=== PATIENT | female | born 1960 | race Caucasian/White ===

== ENCOUNTER 2017-05-05 19:36 | Emergency (ER) | payer OTHER ==
[~2017-05-05] VITALS: Ht 157.5 cm; Wt 74.8 kg
--- NOTE | 2017-05-05 20:30 | RAD ---
CT HEAD INDICATION: Injury from fall, hit back of head, headache. No priors. COMPARISON: None Available. TECHNIQUE: 5 mm contiguous axial images were obtained from the skull base to the vertex Exposure: One or more of the following individualized dose reduction techniques were utilized for this examination: 1. Automated exposure control 2. Adjustment of the mA and/or kV according to patient size 3. Use of iterative reconstruction technique FINDINGS: No abnormal attenuation within the brain parenchyma. No evidence of acute intracranial hemorrhage. No extra-axial fluid collections. No mass effect or midline shift. Ventricular size is appropriate. Basal cisterns are patent. No fractures identified.Stallings-white differentiation is preserved.Globes and orbits are within normal limits. Paranasal sinuses and mastoid air cells are clear. IMPRESSION: No acute intracranial findings. Electronically signed by: Rickie Umaña MD (05/05/2017 8:26 PM) [facility]
--- NOTE | 2017-05-05 20:36 | PHYS DOC ---
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 Patient slipped and fell striking her scalp on the ground. Denies loss of consciousness. Mild headache since. No neck pain or injury. No other complaints. Normal speech vision gait and coordination. Patient does not take blood thinners Everman 70 bone or bleeding problems Review of Systems Review of Systems Constitutional: Denies fever or chills [] Eyes: Denies change in visual acuity, redness, or eye pain [] HENT: Denies nasal congestion or sore throat [] Respiratory: Denies cough or shortness of breath [] Cardiovascular: No additional information not addressed in HPI [] GI: Denies abdominal pain, nausea, vomiting, bloody stools or diarrhea [] : Denies dysuria or hematuria [] Musculoskeletal: Denies back pain or joint pain [] Integument: Denies rash or skin lesions [] Neurologic: Denies headache, focal weakness or sensory changes [] Endocrine: Denies polyuria or polydipsia [] All other systems were reviewed and found to be within normal limits, except as documented in this note. Allergies Allergies Allergies Coded Allergies Type Severity Reaction Last Updated Verified No Known Drug Allergies 05/05/17 No Physical Exam Physical Exam Well appearing patient no acute distress mild scalp tenderness no bony tenderness crepitus or step-off. Nontender C-spine with normal painless range of motion. Normal TMs bilaterally with no hemotympanum. No Sebastian sign. Remainder of exam is completely benign with a nonfocal neurologic exam Constitutional: Well developed, well nourished, no acute distress, non-toxic appearance. [] HENT: Normocephalic, atraumatic, bilateral external ears normal, oropharynx moist, no oral exudates, nose normal. [] Eyes: PERRLA, EOMI, conjunctiva normal, no discharge. [] Neck: Normal range of motion, no tenderness, supple, no stridor. [] Cardiovascular:Heart rate regular rhythm, no murmur [] Lungs & Thorax: Bilateral breath sounds clear to auscultation [] Abdomen: Bowel sounds normal, soft, no tenderness, no masses, no pulsatile masses. [] Skin: Warm, dry, no erythema, no rash. [] Back: No tenderness, no CVA tenderness. [] Extremities: No tenderness, no cyanosis, no clubbing, ROM intact, no edema. [] Neurologic: Alert and oriented X 3, normal motor function, normal sensory function, no focal deficits noted. [] Psychologic: Affect normal, judgement normal, mood normal. [] Current Patient Data Vital Signs Vital Signs Date Time Temp Pulse Resp B/P (MAP) Pulse Ox O2 Delivery O2 Flow Rate FiO2 05/05/17 20:29 60 16 138/102 (114) 97 Room Air 05/05/17 19:40 97.6 EKG EKG [] Radiology/Procedures Radiology/Procedures [] Course & Med Decision Making Course & Med Decision Making Pertinent Labs and Imaging studies reviewed. (See chart for details) Well-appearing patient no acute distress. Mild soft tissue tenderness and swelling of the scalp. No bony crepitus. CT of the head unremarkable. No click limits of C-spine injury. Nonfocal neurologic exam. She is well-appearing and asymptomatic on reevaluation prior to discharge. No further workup or treatment indicated at this time. Patient agrees with outpatient follow-up and strict return precautions given [] Dragon Disclaimer Dragon Disclaimer This electronic medical record was generated, in whole or in part, using a voice recognition dictation system. Departure Departure: Impression: Primary Impression: Closed head injury Additional Impression: Scalp hematoma Disposition: 01 HOME, SELF-CARE Condition: GOOD Referrals: ELENA KEVIN MD (PCP) Patient Instructions: Head Injury, Adult, Scalp Hematoma Additional Instructions: You have suffered a minor head injury from your fall this evening. You also have a small scalp hematoma. Rest apply ice to the swollen area overnight. Take ibuprofen every 6 hours and Tylenol every 4 hours as needed for headache or soreness. Follow up with your doctor tomorrow and return immediately for new severe worsening symptoms. 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 Problem Qualifiers HOPE MATTHEW MD May 05, 2017 20:36
[2017-05-05 20:40] VITALS: BP 156/98
== END 2017-05-05 20:43 | disposition home or self-care (01) ==
LOC: ER 19:36 → EDBD 19:36 → ER 20:43
DX: S00.03XA Contusion of scalp, initial encounter (principal); I10 Essential (primary) hypertension; W01.198A Fall on same level from slipping, tripping and stumbling with subsequent striking against other object, initial encounter; Y93.89 Activity, other specified; Y99.8 Other external cause status; Y92.89 Other specified places as the place of occurrence of the external cause
CPT/HCPCS: 70450; 99284-25

== ENCOUNTER 2019-09-17 00:43 | Emergency (ER) | payer OTHER ==
[~2019-09-17] VITALS: Ht 157.5 cm; Wt 78.1 kg
[2019-09-17 00:48] VITALS: BP 134/94
[2019-09-17] MEDS ORDERED: AMOX1TAB61 PO (00:51)
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
[2019-09-17] MEDS ORDERED: NEOMY/BACITR/POLYMYXIN OINT PACKET. TP ONE (01:00)
[2019-09-17] MEDS ORDERED: DIPH,PERTUSS(ACELL),TET VAC/PF 0.5 ML SYRINGE. VAX IM ONE ×2 (01:00)
[2019-09-17] MEDS ORDERED: AMOXICILLIN/K CLAV 875/125MG TABLET. PO ONE (01:00)
== END 2019-09-17 01:12 | disposition home or self-care (01) ==
LOC: ER 00:43
DX: S61.250A Open bite of right index finger without damage to nail, initial encounter (principal); I10 Essential (primary) hypertension; Z90.49 Acquired absence of other specified parts of digestive tract; Z98.890 Other specified postprocedural states; W50.3XXA Accidental bite by another person, initial encounter; Y93.89 Activity, other specified; Y92.89 Other specified places as the place of occurrence of the external cause; Y99.8 Other external cause status
CPT/HCPCS: 90471; 90715; 99283

== ENCOUNTER → 2019-10-07 | Outpatient (CLI) | payer OTHER ==
[2019-09-17 00:48] VITALS: BP 134/94
[~2019-10-07] MED LIST: AMOX1TAB61 PO
== END | disposition home or self-care (01) ==
LOC: LAB 07:18
PROVIDERS: ATTEND Internal Medicine Cardiovascular Disease
DX: Z20.828 Contact with and (suspected) exposure to other viral communicable diseases (principal)
CPT/HCPCS: C9803; U0003; 36415

== ENCOUNTER → 2020-02-24 | Outpatient (CLI) | payer OTHER | LOC: LAB 02-21 00:57 | PROVIDERS: ATTEND Internal Medicine Cardiovascular Disease | DX: Z20.828 Contact with and (suspected) exposure to other viral communicable diseases (principal) | CPT/HCPCS: U0003 ==

== ENCOUNTER → 2020-03-28 | Outpatient (CLI) | payer OTHER | LOC: LAB 08:35 | PROVIDERS: ATTEND Internal Medicine Cardiovascular Disease | DX: U07.1 COVID-19 (principal) | CPT/HCPCS: U0003 ==

== ENCOUNTER 2020-05-05 19:49 | Emergency (ER) | payer OTHER ==
[~2020-05-05] VITALS: Ht 157.5 cm; Wt 75.5 kg
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
[2020-05-05 19:57] VITALS: BP 134/106
[2020-05-05] MEDS ORDERED: BACITRACIN ZINC TOPICAL OINT PACKET. TP ONE (20:00)
--- NOTE | 2020-05-05 21:11 | RAD ---
Exam: CT head and cervical spine without contrast INDICATION: Fall, hit head TECHNIQUE: Sequential axial images through the head and cervical spine were obtained without the admi nistration of IV contrast. Comparisons: None FINDINGS: Head: No focal parenchymal lesion or hemorrhage is identified. There is no midline shift or sulcal effaceme nt. No acute vascular territory infarction is identified. Stallings-white distinction is preserved. The ventricular system is within normal limits without compression hydrocephalus. The basal cisterns are well maintained. The visualized portions of the paranasal sinuses and mastoid air cells are well-pneumatized. No acute fractures. Cervical spine: Straightening of cervical spine which may be positional. Vertebral body heights are well-maintained. Fracture to the cervical spine is identified. Multilevel spondylotic change in cervical spine with degenerative disc disease greatest at C4-C5, C5- C6. Visualized paraspinal soft tissues are unremarkable. IMPRESSION: 1. No acute intracranial abnormality. 2. Negative CT C-spine for acute traumatic injury. Exposure: One or more of the following in the visualized dose reduction techniques were utilized for this examination: 1. Automated exposure control 2. Adjustment of the MA and/or KV according to patient size Use of iterative of reconstructive technique Electronically signed by: Micheal Faulkner MD (05/05/2020 9:09 PM) [facility]
== END 2020-05-05 21:26 | disposition home or self-care (01) ==
LOC: ER 19:49
DX: S00.83XA Contusion of other part of head, initial encounter (principal); I10 Essential (primary) hypertension; Z90.49 Acquired absence of other specified parts of digestive tract; Z98.890 Other specified postprocedural states; W18.39XA Other fall on same level, initial encounter; Y93.89 Activity, other specified; Y92.89 Other specified places as the place of occurrence of the external cause; Y99.8 Other external cause status
CPT/HCPCS: 70450; 72125; 99285

== ENCOUNTER → 2020-06-15 | Outpatient (CLI) | payer OTHER ==
--- NOTE | 2020-06-15 14:21 | RAD ---
MR#: [id number] Date of Study: 06/15/2020 Ordering Physician: HEMANTH GOULD, Referring Physician: LAURA APODACA Tech: APPROVED REPORT Test Type: Exercise Stress Nurse/Tech: SHAVONNE Pleitez Test Indications: Family History of CAD Cardiac History: occasional tachycardia Medications: see EHR Medical History: see EHR Resting ECG: SR Resting Heart Rate: 121 bpm Resting Blood Pressure: 168/85mmHg Pretest Chest Pain: None Nurse/Tech Notes Consent: The procedure was explained to the patient in lay terms. Informed consent was witnessed. Harley charles was entered into b-datum. History and Stress Test performed by SHAVONNE Pleitez POST EXERCISE Reason for Termination: Fatigue Target HR: 136 Max HR: 154 bpm 113% of Maximum Predicted HR: 136 bpm Exercise duration: 7:25 min:sec, Stage Exercise capacity: 10METs Max Blood Pressure: 168/93mmHg Blood Pressure response to exercise: Normal blood pressure response during stress. Chest Pain: No. Arrhythmia: No. ST Change: No. INTERPRETATION Stress EKG Conclusion: Baseline EKG showed sinus rhythm. No ischemic changes at peak stress. No arr hythmias. Conclusion 1. Treadmill exercise stress electrocardiogram did not show any diagnostic evidence of ischemia. 2. Patient had good activity tolerance. Low risk study. Signed by : Celestine Mendoza, Electronically Approved : 06/15/2020 14:20:53
== END ==
LOC: NM 07:20
PROVIDERS: ATTEND Family Medicine
DX: I10 Essential (primary) hypertension (principal)
CPT/HCPCS: 93017

== ENCOUNTER → 2020-10-14 | Outpatient (CLI) | payer OTHER | LOC: LAB 10:28 | PROVIDERS: ATTEND Internal Medicine Cardiovascular Disease | DX: Z20.822 Contact with and (suspected) exposure to COVID-19 (principal) | CPT/HCPCS: U0003; U0005 ==

== ENCOUNTER 2020-11-03 19:32 | Emergency (ER) | payer OTHER ==
[~2020-11-03] VITALS: Ht 157.5 cm; Wt 81.0 kg
[~2020-11-03 19:32] MED LIST changes: -HYDR-2155 PO
[2020-11-03 19:41] VITALS: BP 183/99
--- NOTE | 2020-11-03 20:22 | RAD ---
RiGHT WRIST, 3 VIEWS Indication: Reason: pain after fall / Spl. Instructions: / History: Findings: There is no acute fracture or dislocation. No bony erosion is identified. The joint spaces are maintained. The mineralization is normal. There is no soft tissue swelling or radiopaque foreign body. IMPRESSION: No acute fracture. Electronically signed by: Mohan Little MD (11/03/2020 8:20 PM) [facility]
[2020-11-03] MEDS ORDERED: HYDR-2155 PO (20:38)
--- NOTE | 2020-11-03 20:43 | PHYS DOC ---
Past History Past Medical History: Hypertension (HOPE KNOX APRN) Past Surgical History: No Surgical History Additional Past Surgical Histo: carpal tunnel (HOPE KNOX APRN) Alcohol Use: None Drug Use: None (HOPE KNOX APRN) Adult General Chief Complaint Chief Complaint: WRIST PAIN HPI HPI Patient is a 60-year-old female who presents to the emergency department with chief complaint of slipping and falling left catching her fall with her right hand extended, patient reports pain to her right wrist after fall, reports a 5 out of 10 at onset which remains a 5 out of 10 pain on arrival to the ER today. Patient denies hitting her head or having a syncopal episode, denies taking any pain medications or using any nonpharmacological pain therapies prior to arrival to the ER today. Patient denies any other physical complaints or physical concerns. (HOPE KNOX APRN) Review of Systems Review of Systems 14 body systems of review of systems have been reviewed. See HPI for pertinent positives and negative responses, otherwise all other systems are negative, nonpertinent or noncontributory. Constitutional: Negative except as outlined in HPI above. Skin: Negative except as outlined in HPI above. Eyes: Negative except as outlined in HPI above. HENT: Negative except as outlined in HPI above. Respiratory: Negative except as outlined in HPI above. Cardiovascular: Negative except as outlined in HPI above. GI: Negative except as outlined in HPI above. : Negative except as outlined in HPI above. Musculoskeletal: Negative except as outlined in HPI above. Integument: Negative except as outlined in HPI above. Neurologic: Negative except as outlined in HPI above. Endocrine: Negative except as outlined in HPI above. Lymphatic: Negative except as outlined in HPI above. Psychiatric: Negative except as outlined in HPI above. (HOPE KNOX APRN) Allergies Allergies Allergies Coded Allergies Type Severity Reaction Last Updated Verified No Known Drug Allergies 05/05/17 No (HOPE KNOX APRN) Physical Exam Physical Exam Constitutional: Well developed, well nourished, no acute distress, non-toxic appearance. 60-year-old female in no apparent distress. HENT: Normocephalic, atraumatic. Eyes: Conjunctiva normal, no discharge. Neck: Normal range of motion, no stridor. Cardiovascular: No cyanosis appreciated, distal cap refill less than 2 seconds. Lungs & Thorax: Patient is in no respiratory distress, no audible adventitious lung sounds appreciated. Abdomen: Nontender, no abnormalities noted. Skin: Warm, dry, no erythema, no rash. Back: No tenderness, no deformities. Extremities: No tenderness, no cyanosis, no clubbing, ROM intact, no edema. Except for right wrist, no deformity appreciated, no erythema or edema or swelling appreciated, no crepitus appreciated, 2+ radial and brachial pulse of the right upper extremity, distal cap refills less than 2 seconds, no compartment syndrome signs appreciated, limited passive range of motion related to pain. Neurologic: Alert and oriented X 3, normal motor function, normal sensory function, no focal deficits noted. Psychologic: Affect normal, judgement normal, mood normal. (HOPE KNOX APRN) Current Patient Data Vital Signs Vital Signs Date Time Temp Pulse Resp B/P (MAP) Pulse Ox O2 Delivery O2 Flow Rate FiO2 11/03/20 19:41 98.1 88 16 183/99 95 Room Air (HOPE KNOX APRN) EKG EKG [] (HOPE KNOX APRN) Radiology/Procedures Radiology/Procedures [] (HOPE KNOX APRN) Heart Score C/O Chest Pain: No Risk Factors: Risk Factors: DM, Current or recent (<one month) smoker, HTN, HLP, family history of CAD, obesity. Risk Scores: Risk Factors: DM, Current or recent (<one month) smoker, HTN, HLP, family history of CAD, obesity. (HOPE KNOX APRN) Course & Med Decision Making Course & Med Decision Making Pertinent Labs and Imaging studies reviewed. (See chart for details) 60-year-old female, vital signs reviewed, presents emergency department after a slip and fall while at work today. Physical examination concerning for possible bony injury versus contusion versus sprain of right wrist related to patient's explanation of events, will order x-ray of right wrist. Patient reports she will be driving home, discussed pain medication options, will give p.o. Tylenol and Motrin for complaint of 5 out of 10 pain. Ice pack ordered. X-ray interpreted by house radiologist nonconcerning for acute fracture, discussed findings with patient, discussed Velcro wrist splint use, ice and elevation, RICE therapy, patient is an employee of [employer], will give work excuse until Friday, patient is to follow-up with work comp physician/primary care physician/employee health for reevaluation of work status. Patient amenable to this plan. Discussed with the patient all findings and diagnostic testing as well as the need to follow-up with their primary care provider for further evaluation and treatment or return to the ED if any new or worsening symptoms. Strict return precautions were also discussed at length, the patient voiced understanding and agreement with the discharge planning. The patient was nontoxic in appearance, in no apparent distress, and hemodynamically stable at the time of disposition. (HOPE KNOX APRN) Dragon Disclaimer Dragon Disclaimer This electronic medical record was generated, in whole or in part, using a voice recognition dictation system. (HOPE KNOX APRN) Departure Departure: Impression: Primary Impression: Fall from slipping Additional Impression: Sprain of right wrist Disposition: HOME / SELF CARE / HOMELESS Condition: GOOD Referrals: ELENA KEVIN MD (PCP) Patient Instructions: Wrist Pain, Wrist Splint, Wrist Sprain with [facility]hab- [facility] Additional Instructions: You were seen today in the emergency department after a slip and fall in which you cut yourself with your right wrist. X-ray was performed and did not show any concerning findings of broken bones. You were placed in a Velcro wrist splint, please ice as we discussed 30 minutes on and 30 minutes off while awake for the next 48 to 72 hours. I am providing you for a work excuse you may return back to work on Friday. Please follow-up with your primary care physician Dr. Knapp for ongoing pain management. Thank you for visiting our Emergency Department. It was a pleasure taking care of you today in the emergency department and we appreciate you trusting us with your care. If any additional problems come up don't hesitate to return to visit us. Please follow up with your primary care provider so they can plan additional care if needed and know about the problem that you had. If symptoms worsen come back to the Emergency Department. Any concerning symptoms that start such as chest pain, shortness of air, weakness or numbness on one side of the body, running high fevers or any other concerning symptoms return to the ER. You have been tested for or diagnosed with COVID-19. It is an infection caused by a new type of coronavirus. COVID-19 will cause cold-like or mild flu symptoms in most. It can cause more severe symptoms like problems breathing in some. There is no treatment for COVID-19. The body will clear the infection over time. Self-care will help to ease discomfort. Steps to Take: Self-Care Rest as needed. Healthy habits may help you feel better. Steps include: Choose healthy foods including fruits and vegetables. Drink water throughout the day. Get plenty of sleep each night. If you smoke, try to quit. It may ease breathing. Avoid alcohol. Keep Others Healthy The virus can spread to others. Droplets are released every time you sneeze or cough. The droplets can get into the mouth, nose, or eyes of people near you and lead to infection. To lower the chances of spreading COVID-19 to others: Stay at home until your doctor has said it is safe to leave. If you tested positive this will mean staying isolated until both of the following are true: At least 7 days have passed since the start of illness. You are free of fever for at least 72 hours without the use of medicine. During this time: - Avoid public areas, events, or transportation. Do not return to work or school until your doctor has said it is safe to do so. - Call ahead if you need to go to a medical center. Let them know you may have COVID-19. It will help them guide you where to go. They may also ask you to wear a facemask when you come to the office. - If you call for emergency medical services, let them know you may have COVID- 19. While at home: - Try to avoid close contact with others. Stay about 6 feet away. - If possible, spend most of your time in a separate room from others. - Use a face mask if you will be in close contact with others such as sharing a room or vehicle. - Have someone wipe down common surfaces in the home. Use household engineering job titles every day on areas like doorknobs, counters, or sinks. - Cough or sneeze into a tissue. Throw the tissue away right after use. If a tissue is not available, cough or sneeze into your elbow. - Wash your hands often. Wash them after sneezing or coughing. Use soap and water and wash for at least 20 seconds. Alcohol based hand line cleaner can be used if soap and water is not available. - Do not prepare food for others. Avoid sharing personal items like forks, spoons, or toothbrushes. - Avoid close contact with pets while you are sick. There is no evidence of the virus passing to pets. This is a safety step until more is known about this virus. Isolation can be frustrating. Social interaction can help. Keep in touch with friends and family through phone and tech options. You can still interact with others in your home, just keep a safe distance of about 6 feet. Follow-up: Your doctors office will check in with you to see if there are any changes in your health. You may be asked to keep track of symptoms to share with them. They will also let you know when you are clear to be in public again. Problems to Look Out For: Contact your doctor if your recovery is not going as you expect. Get emergency care if you have problems such as: - Trouble breathing - Nonstop chest pain or pressure - Changes in awareness, confusion, or problems waking - Lips or face have bluish color - Worsening of symptoms If you think you have an emergency, call for emergency medical services right away. As taken from [facility] Hydrocodone Bit/Acetaminophen (HYDROCODONE-APAP 5-325 ) 1 Each Tablet 1 TAB PO PRN Q6HRS PRN for PAIN, #15 TAB 0 Refills Prov: HOPE KNOX Daniel FLOWERS 11/03/20 Attending Signature Attending Signature I have participated in the care of this patient and I have reviewed and agree with all pertinent clinical information above including history, exam, and recommendations. (SHAUNNA CH MD) Problem Qualifiers Primary Impression: Fall from slipping Encounter type: initial encounter Qualified Codes: W01.0XXA - Fall on same level from slipping, tripping and stumbling without subsequent striking against object, initial encounter Additional Impression: Sprain of right wrist Encounter type: initial encounter Qualified Codes: S63.501A - Unspecified sprain of right wrist, initial encounter ABILIOHOPE Sanchez APRN Nov 03, 2020 20:43 SHAUNNA CH MD Nov 07, 2020 13:46
[2020-11-03] MEDS ORDERED: IBUPROFEN 600 MG TABLET. PO ONE (20:45)
[2020-11-03] MEDS ORDERED: ACETAMINOPHEN 500 MG TABLET PO ONE (20:45)
== END 2020-11-03 20:54 | disposition home or self-care (01) ==
LOC: ER 19:32
DX: S63.501A Unspecified sprain of right wrist, initial encounter (principal); I10 Essential (primary) hypertension; W01.0XXA Fall on same level from slipping, tripping and stumbling without subsequent striking against object, initial encounter; Y93.89 Activity, other specified; Y92.89 Other specified places as the place of occurrence of the external cause; Y99.8 Other external cause status
CPT/HCPCS: 29125; 73110; 99283

== ENCOUNTER → 2020-11-03 | Outpatient (CLI) | payer OTHER ==
[~2020-11-03] MED LIST changes: +HYDR-2155 PO
== END ==
LOC: LAB 10-27 06:50
PROVIDERS: ATTEND Internal Medicine Cardiovascular Disease
DX: Z20.822 Contact with and (suspected) exposure to COVID-19 (principal)
CPT/HCPCS: U0003

== ENCOUNTER → 2020-11-11 | Outpatient (CLI) | payer OTHER ==
[2020-11-03 19:41] VITALS: BP 183/99
[~2020-11-11] MED LIST changes: +HYDR-2155 PO
== END ==
LOC: LAB 11:50
PROVIDERS: ATTEND Internal Medicine Cardiovascular Disease
DX: Z20.822 Contact with and (suspected) exposure to COVID-19 (principal)
CPT/HCPCS: C9803; U0003

== ENCOUNTER → 2020-12-01 | Outpatient (CLI) | payer OTHER ==
[2020-11-03 19:41] VITALS: BP 183/99
== END ==
LOC: LAB 09:45
PROVIDERS: ATTEND Internal Medicine Cardiovascular Disease
DX: Z20.822 Contact with and (suspected) exposure to COVID-19 (principal)
CPT/HCPCS: C9803; U0003

== ENCOUNTER → 2020-12-14 | Outpatient (CLI) | payer OTHER | LOC: LAB 13:45 | PROVIDERS: ATTEND Internal Medicine Cardiovascular Disease | DX: Z20.822 Contact with and (suspected) exposure to COVID-19 (principal) | CPT/HCPCS: U0003 ==

== ENCOUNTER → 2020-12-29 | Outpatient (CLI) | payer OTHER | LOC: LAB 07:01 | PROVIDERS: ATTEND Internal Medicine Cardiovascular Disease | DX: Z20.822 Contact with and (suspected) exposure to COVID-19 (principal) | CPT/HCPCS: U0003 ==

== ENCOUNTER → 2021-01-05 | Outpatient (CLI) | payer OTHER | LOC: LAB 07:01 | PROVIDERS: ATTEND Internal Medicine Cardiovascular Disease | DX: Z20.822 Contact with and (suspected) exposure to COVID-19 (principal) | CPT/HCPCS: U0003 ==

== ENCOUNTER → 2021-01-12 | Outpatient (CLI) | payer OTHER | LOC: LAB 07:01 | PROVIDERS: ATTEND Internal Medicine Cardiovascular Disease | DX: Z20.822 Contact with and (suspected) exposure to COVID-19 (principal) | CPT/HCPCS: U0003 ==

== ENCOUNTER → 2021-01-19 | Outpatient (CLI) | payer OTHER | LOC: LAB 16:39 | PROVIDERS: ATTEND Internal Medicine Cardiovascular Disease | DX: Z20.822 Contact with and (suspected) exposure to COVID-19 (principal) | CPT/HCPCS: U0003 ==

== ENCOUNTER → 2021-01-26 | Outpatient (CLI) | payer OTHER | LOC: LAB 07:00 | PROVIDERS: ATTEND Internal Medicine Cardiovascular Disease | DX: Z20.822 Contact with and (suspected) exposure to COVID-19 (principal) | CPT/HCPCS: U0003 ==

== ENCOUNTER → 2021-02-02 | Outpatient (CLI) | payer OTHER | LOC: LAB 07:05 | PROVIDERS: ATTEND Internal Medicine Cardiovascular Disease | DX: Z20.822 Contact with and (suspected) exposure to COVID-19 (principal) | CPT/HCPCS: U0003 ==

== ENCOUNTER → 2021-02-09 | Outpatient (CLI) | payer OTHER | LOC: LAB 08:00 | PROVIDERS: ATTEND Internal Medicine Cardiovascular Disease | DX: Z20.822 Contact with and (suspected) exposure to COVID-19 (principal) | CPT/HCPCS: U0003 ==

== ENCOUNTER → 2021-02-23 | Outpatient (CLI) | payer OTHER | LOC: LAB 07:00 | PROVIDERS: ATTEND Internal Medicine Cardiovascular Disease | DX: Z20.822 Contact with and (suspected) exposure to COVID-19 (principal) | CPT/HCPCS: U0003 ==

== ENCOUNTER → 2021-03-02 | Outpatient (CLI) | payer OTHER | LOC: LAB 07:00 | PROVIDERS: ATTEND Internal Medicine Cardiovascular Disease | DX: Z20.822 Contact with and (suspected) exposure to COVID-19 (principal) | CPT/HCPCS: U0003 ==

== ENCOUNTER → 2021-03-09 | Outpatient (CLI) | payer OTHER | LOC: LAB 07:39 | PROVIDERS: ATTEND Internal Medicine Cardiovascular Disease | DX: Z20.822 Contact with and (suspected) exposure to COVID-19 (principal) | CPT/HCPCS: U0003 ==

== ENCOUNTER → 2021-03-17 | Outpatient (CLI) | payer OTHER | LOC: LAB 01-15 10:50 | PROVIDERS: ATTEND Internal Medicine Cardiovascular Disease | DX: Z20.822 Contact with and (suspected) exposure to COVID-19 (principal) | CPT/HCPCS: C9803; U0003 ==

== ENCOUNTER → 2021-03-23 | Outpatient (CLI) | payer OTHER | LOC: LAB 10:00 | PROVIDERS: ATTEND Internal Medicine Cardiovascular Disease | DX: Z20.822 Contact with and (suspected) exposure to COVID-19 (principal) | CPT/HCPCS: C9803; U0003 ==